=== PATIENT | male | born 1970 | race Caucasian/White ===

== ENCOUNTER 2017-05-02 13:56 | Emergency (ER) | payer OTHER ==
[~2017-05-02] VITALS: Ht 175.2 cm; Wt 90.7 kg
[~2017-05-02 13:56] MED LIST: BACTRIM DS 8001 TA1 PO; CLINDAMYCIN HC300 MG PO; FLEXERIL10 MG PO; KEFLEX500 MG PO; MOTRIN600 MG PO; NKHM PO; TRAMADOL HCL50 MG PO; TYLENOL ES500 MG PO; VICODIN 5/500 505 MG PO; ZITHROMAX Z PA250 MG PO
[2017-05-02] MEDS ORDERED: MEDROL DOSEPAK4 MG PO (16:13)
[2017-05-02] MEDS ORDERED: CYCLOBENZAPRINE5 M3 PO (16:13)
== END 2017-05-02 16:17 | disposition home or self-care (01) ==
LOC: ED 13:56
DX: M54.16 Radiculopathy, lumbar region (principal); F17.200 Nicotine dependence, unspecified, uncomplicated; Z88.0 Allergy status to penicillin; Z88.1 Allergy status to other antibiotic agents; Z79.899 Other long term (current) drug therapy

== ENCOUNTER → 2017-05-04 | Outpatient (CLI) | payer OTHER ==
[~2017-05-04] MED LIST changes: +CYCLOBENZAPRINE5 M3 PO; +MEDROL DOSEPAK4 MG PO
== END | disposition home or self-care (01) ==
LOC: RESCLI 13:07
DX: M54.17 Radiculopathy, lumbosacral region (principal); M54.30 Sciatica, unspecified side; F17.210 Nicotine dependence, cigarettes, uncomplicated; M79.604 Pain in right leg; Z88.0 Allergy status to penicillin

== ENCOUNTER → 2017-05-11 | Outpatient (CLI) | payer OTHER ==
[2017-05-11 15:54] LABS: BASO # 0.1 10*3/uL (0.0-0.1); BASO % 0.5 % (0.0-1.0); EOS # 0.4 10*3/uL (0.0-0.4); EOS % 3.2 % (1.0-4.0); HEMATOCRIT 44.7 % (42.0-52.0); HEMOGLOBIN 15.5 g/dl (14.0-18.0); LYMPH # 2.7 10*3/uL (1.3-4.4); MEAN CELL VOLUME 91.2 fl (80.0-94.0); MEAN CORPUSCULAR HGB 31.6 pg (27.0-31.0); MEAN CORPUSCULAR HGB CONC 34.7 g/dl (33.0-37.0); MEAN PLATELET VOLUME 9.4 fl (9.6-12.3); MONO # 0.9 10*3/uL (0.1-1.0); MONO % 7.8 % (3.0-9.0); NEUT # 7.6 10*3/uL (2.3-7.9); NEUT % 64.8 % (47.0-73.0); PLATELET COUNT AUTOMATED 328 10*3/uL (130-400); RED CELL DISTRI WIDTH 13.7 % (0-14.5); WHITE BLOOD COUNT 11.7 10*3/uL (4.8-10.8)
[2017-05-11 16:13] LABS: ALBUMIN 3.6 gm/dl (3.1-4.5); BUN 14 mg/dl (7-24); CHLORIDE 101 mmol/L (98-107); CREATININE 0.87 mg/dL (0.70-1.30); POTASSIUM 3.8 mmol/L (3.5-5.1); SGOT/AST 22 IU/L (3-35); SGPT/ALT 43 U/L (12-78); SODIUM 137 mmol/L (136-145)
[2017-05-11 16:14] LABS: ALKALINE PHOSPHATASE 56 U/L (45-117)
== END | disposition home or self-care (01) ==
LOC: LAB 03:31 → RESCLI 03:31
PROVIDERS: Hospitalist
DX: Z13.1 Encounter for screening for diabetes mellitus (principal); I10 Essential (primary) hypertension; R79.89 Other specified abnormal findings of blood chemistry

== ENCOUNTER 2017-06-06 23:28 | Emergency (ER) | payer OTHER ==
[~2017-06-06] VITALS: Ht 175.2 cm; Wt 102.1 kg
[2017-06-06] MEDS ORDERED: TRAMADOL HCL50 MG PO (23:32)
[2017-06-06] MEDS ORDERED: ASPIRIN ADULT L81 M1 PO (23:32)
[2017-06-06] MEDS ORDERED: LISINOPRIL10 M1 PO (23:32)
[2017-06-06] MEDS ORDERED: OLOPATADINE HCL5 ML OD (23:33)
[2017-06-06 23:56] LABS: BASO # 0.1 10*3/uL (0.0-0.1); BASO % 0.7 % (0.0-1.0); EOS # 0.3 10*3/uL (0.0-0.4); EOS % 2.5 % (1.0-4.0); HEMATOCRIT 45.3 % (42.0-52.0); HEMOGLOBIN 15.2 g/dl (14.0-18.0); LYMPH # 2.7 10*3/uL (1.3-4.4); MEAN CORPUSCULAR HGB 30.5 pg (27.0-31.0); MEAN CORPUSCULAR HGB CONC 33.6 g/dl (33.0-37.0); MEAN PLATELET VOLUME 9.2 fl (9.6-12.3); MONO % 9.1 % (3.0-9.0); NEUT # 6.6 10*3/uL (2.3-7.9); NEUT % 61.9 % (47.0-73.0); PLATELET COUNT AUTOMATED 348 10*3/uL (130-400); RED BLOOD COUNT 4.98 10*6/uL (4.50-5.90); RED CELL DISTRI WIDTH 13.3 % (0-14.5); WHITE BLOOD COUNT 10.6 10*3/uL (4.8-10.8)
[2017-06-07 00:10] LABS: ALBUMIN 3.6 gm/dl (3.1-4.5); ALKALINE PHOSPHATASE 64 U/L (45-117); BUN 14 mg/dl (7-24); CHLORIDE 107 mmol/L (98-107); CREATININE 1.03 mg/dL (0.70-1.30); LIPASE 162 U/L (73-393); POTASSIUM 4.1 mmol/L (3.5-5.1); SGOT/AST 17 IU/L (3-35); SGPT/ALT 39 U/L (12-78); SODIUM 141 mmol/L (136-145); TOTAL PROTEIN 6.9 gm/dL (6.4-8.2)
[2017-06-07 00:27] LABS: BILIRUBIN NEGATIVE (NEGATIVE); BLOOD 3+ (NEGATIVE); CLARITY SL CLOUDY (CLEAR); COLOR YELLOW (YELLOW); GLUCOSE NEGATIVE (NEGATIVE); KETONE NEGATIVE (NEGATIVE); LEUKO ESTERASE NEGATIVE (NEGATIVE); NITRITE NEGATIVE (NEGATIVE); SPECIFIC GRAVITY >= 1.030 (1.005-1.030); UROBILINOGEN 0.2 E.U./dl (0.2-1.0)
[2017-06-07 00:38] LABS: BACTERIA 1+; EPITHELIAL CELLS 0-2; RBC 51-100 rbc/hpf (0-2); WBC 0-2 wbc/hpf (0-5)
== END 2017-06-07 02:07 | disposition home or self-care (01) ==
LOC: ED 23:28
PROVIDERS: Nurse Practitioner Family
DX: N20.1 Calculus of ureter (principal); R10.11 Right upper quadrant pain; R10.31 Right lower quadrant pain; Z79.899 Other long term (current) drug therapy; Z79.82 Long term (current) use of aspirin; Z88.0 Allergy status to penicillin; Z88.1 Allergy status to other antibiotic agents

== ENCOUNTER → 2017-06-14 | Outpatient (CLI) | payer OTHER ==
[~2017-06-14] MED LIST changes: +ASPIRIN ADULT L81 M1 PO; +LISINOPRIL10 M1 PO; +OLOPATADINE HCL5 ML OD
[2017-06-14 16:57] LABS: BASO # 0.1 10*3/uL (0.0-0.1); BASO % 0.7 % (0.0-1.0); EOS # 0.3 10*3/uL (0.0-0.4); EOS % 3.5 % (1.0-4.0); HEMATOCRIT 45.1 % (42.0-52.0); LYMPH # 2.5 10*3/uL (1.3-4.4); LYMPH % 33.7 % (27.0-41.0); MEAN CELL VOLUME 92.4 fl (80.0-94.0); MEAN CORPUSCULAR HGB 30.7 pg (27.0-31.0); MEAN CORPUSCULAR HGB CONC 33.3 g/dl (33.0-37.0); MEAN PLATELET VOLUME 9.3 fl (9.6-12.3); MONO # 0.8 10*3/uL (0.1-1.0); MONO % 10.2 % (3.0-9.0); NEUT # 3.9 10*3/uL (2.3-7.9); NEUT % 51.5 % (47.0-73.0); PLATELET COUNT AUTOMATED 327 10*3/uL (130-400); RED BLOOD COUNT 4.88 10*6/uL (4.50-5.90); RED CELL DISTRI WIDTH 13.4 % (0-14.5); WHITE BLOOD COUNT 7.5 10*3/uL (4.8-10.8)
[2017-06-14 16:57] LABS: BILIRUBIN NEGATIVE (NEGATIVE); BLOOD 1+ (NEGATIVE); CLARITY CLEAR (CLEAR); COLOR YELLOW (YELLOW); GLUCOSE NEGATIVE (NEGATIVE); KETONE NEGATIVE (NEGATIVE); LEUKO ESTERASE NEGATIVE (NEGATIVE); NITRITE NEGATIVE (NEGATIVE); PH 5.5 (5.0-9.0); SPECIFIC GRAVITY <= 1.005 (1.005-1.030); UROBILINOGEN 0.2 E.U./dl (0.2-1.0)
[2017-06-14 17:15] LABS: ALKALINE PHOSPHATASE 56 U/L (45-117); BUN 13 mg/dl (7-24); CHLORIDE 103 mmol/L (98-107); CREATININE 0.91 mg/dL (0.70-1.30); SGOT/AST 24 IU/L (3-35); SGPT/ALT 44 U/L (12-78); SODIUM 139 mmol/L (136-145); T3 UPTAKE 38 % (31-39); THYROXINE (T4) TOTAL 6.8 ug/dl (4.5-12.1); TOTAL PROTEIN 7.2 gm/dL (6.4-8.2)
[2017-06-14 17:37] LABS: RBC 0-2 rbc/hpf (0-2); WBC 0-2 wbc/hpf (0-5)
== END | disposition home or self-care (01) ==
LOC: LAB 15:46 → US 17:00
PROVIDERS: Urology
DX: N20.0 Calculus of kidney (principal)

== ENCOUNTER → 2017-06-18 | Outpatient (CLI) | payer OTHER | END | disposition home or self-care (01) | LOC: LAB 08:05 | PROVIDERS: Urology | DX: N20.0 Calculus of kidney (principal) ==

== ENCOUNTER → 2017-09-02 | Outpatient (CLI) | payer SELFPAY | END | disposition home or self-care (01) | LOC: RESCLI 07:54 | DX: I10 Essential (primary) hypertension (principal); E55.9 Vitamin D deficiency, unspecified; L72.9 Follicular cyst of the skin and subcutaneous tissue, unspecified; F17.210 Nicotine dependence, cigarettes, uncomplicated; Z71.6 Tobacco abuse counseling; Z83.3 Family history of diabetes mellitus; Z84.89 Family history of other specified conditions; Z88.0 Allergy status to penicillin; Z88.8 Allergy status to other drugs, medicaments and biological substances ==

== ENCOUNTER 2018-12-09 17:35 | Emergency (ER) | payer OTHER ==
[~2018-12-09] VITALS: Ht 175.2 cm; Wt 99.8 kg
[2018-12-09] MEDS ORDERED: PREDNISONE20 M1 PO (17:55)
[2018-12-09] MEDS ORDERED: SEPTDS PO (17:55)
== END 2018-12-09 18:09 | disposition home or self-care (01) ==
LOC: ED 17:35
DX: L02.13 Carbuncle of neck (principal); Z79.899 Other long term (current) drug therapy; Z79.82 Long term (current) use of aspirin; Z88.0 Allergy status to penicillin; Z88.1 Allergy status to other antibiotic agents

== ENCOUNTER 2019-05-19 00:33 | Emergency (ER) | payer OTHER ==
[~2019-05-19] VITALS: Ht 175.2 cm; Wt 102.1 kg
[~2019-05-19 00:33] MED LIST changes: +PREDNISONE20 M1 PO; +SEPTDS PO
[2019-05-19] MEDS ORDERED: ANAPROX DS550 MG PO (01:03)
== END 2019-05-19 02:33 | disposition home or self-care (01) ==
LOC: ED 00:33
DX: M94.0 Chondrocostal junction syndrome [Tietze] (principal); Z88.0 Allergy status to penicillin; Z88.8 Allergy status to other drugs, medicaments and biological substances; Z79.899 Other long term (current) drug therapy; Z79.2 Long term (current) use of antibiotics; Z79.82 Long term (current) use of aspirin

== ENCOUNTER 2020-07-02 09:34 | Emergency (ER) | payer OTHER ==
[~2020-07-02] VITALS: Ht 175.2 cm; Wt 102.1 kg
[~2020-07-02 09:34] MED LIST changes: +ANAPROX DS550 MG PO
[2020-07-02 10:30] LABS: BILIRUBIN Negative (Negative); BLOOD Negative (Negative); CLARITY Clear (Clear); COLOR Yellow (Yellow); GLUCOSE Negative (Negative); KETONE Negative (Negative); LEUKO ESTERASE Negative (Negative); NITRITE Negative (Negative)
[2020-07-02 10:50] LABS: BACTERIA TRACE; EPITHELIAL CELLS 0-2; MUCOUS TRACE; RBC 0-2 rbc/hpf (0-2); WBC 0-2 wbc/hpf (0-5)
[2020-07-02 10:55] LABS: BASO # 0.1 10*3/uL (0.0-0.1); BASO % 0.9 % (0.0-1.0); EOS # 0.3 10*3/uL (0.0-0.4); EOS % 4.3 % (1.0-4.0); HEMATOCRIT 47.4 % (42.0-52.0); LYMPH # 1.8 10*3/uL (1.3-4.4); LYMPH % 27.6 % (27.0-41.0); MEAN CELL VOLUME 90.6 fl (80.0-94.0); MEAN CORPUSCULAR HGB 30.4 pg (27.0-31.0); MEAN CORPUSCULAR HGB CONC 33.5 g/dl (33.0-37.0); MEAN PLATELET VOLUME 9.2 fl (9.6-12.3); MONO # 0.6 10*3/uL (0.1-1.0); MONO % 9.6 % (3.0-9.0); NEUT # 3.8 10*3/uL (2.3-7.9); NEUT % 57.3 % (47.0-73.0); PLATELET COUNT AUTOMATED 315 10*3/uL (130-400); RED BLOOD COUNT 5.23 10*6/uL (4.50-5.90); RED CELL DISTRI WIDTH 13.3 % (0-14.5); WHITE BLOOD COUNT 6.6 10*3/uL (4.8-10.8)
[2020-07-02 11:06] LABS: ACT PARTIAL THROMBO TIME 27.8 SECONDS (20.0-32.1)
[2020-07-02 11:13] LABS: ALBUMIN 3.6 gm/dl (3.1-4.5); ALKALINE PHOSPHATASE 65 U/L (45-117); BUN 11 mg/dl (7-24); CHLORIDE 111 mmol/L (98-107); CREATININE 0.92 mg/dL (0.70-1.30); LIPASE 82 U/L (73-393); POTASSIUM 4.1 mmol/L (3.5-5.1); SGOT/AST 17 IU/L (3-35); SGPT/ALT 41 U/L (12-78); SODIUM 139 mmol/L (136-145); TOTAL PROTEIN 7.3 gm/dL (6.4-8.2)
[2020-07-02 11:15] LABS: NT-proBNP < 5.00 pg/mL (0-125); TROPONIN I < 0.015 ng/ml (<0.045)
== END 2020-07-02 11:20 | disposition home or self-care (01) ==
LOC: ED 09:34
PROVIDERS: Emergency Medicine
DX: R53.1 Weakness (principal); Z20.822 Contact with and (suspected) exposure to COVID-19; Z88.0 Allergy status to penicillin; Z88.8 Allergy status to other drugs, medicaments and biological substances; Z79.899 Other long term (current) drug therapy

== ENCOUNTER 2020-10-19 19:09 | Emergency (ER) | payer OTHER ==
[~2020-10-19] VITALS: Ht 175.2 cm; Wt 106.6 kg
[2020-10-20] MEDS ORDERED: NAPROXEN250 MG PO (13:06)
[2020-10-20] MEDS ORDERED: TYLENOL325 M1 PO (13:06)
== END 2020-10-19 20:40 | disposition left against medical advice (07) ==
LOC: ED 19:09
DX: M25.571 Pain in right ankle and joints of right foot (principal); R51.9 Headache, unspecified; Z53.21 Procedure and treatment not carried out due to patient leaving prior to being seen by health care provider; W17.2XXA Fall into hole, initial encounter; Y93.89 Activity, other specified; Y92.89 Other specified places as the place of occurrence of the external cause; Y99.8 Other external cause status

== ENCOUNTER 2020-10-20 10:06 | Emergency (ER) | payer OTHER ==
[~2020-10-20] VITALS: Ht 175.2 cm; Wt 106.6 kg
[2020-10-20] MEDS ORDERED: NAPROXEN250 MG PO (13:06)
[2020-10-20] MEDS ORDERED: TYLENOL325 M1 PO (13:06)
== END 2020-10-20 13:02 | disposition home or self-care (01) ==
LOC: ED 10:06
DX: S93.401A Sprain of unspecified ligament of right ankle, initial encounter (principal); M25.551 Pain in right hip; Z88.0 Allergy status to penicillin; Z88.1 Allergy status to other antibiotic agents; Z79.899 Other long term (current) drug therapy; Z79.2 Long term (current) use of antibiotics; Z79.82 Long term (current) use of aspirin; Z87.442 Personal history of urinary calculi; W01.198A Fall on same level from slipping, tripping and stumbling with subsequent striking against other object, initial encounter; Y93.01 Activity, walking, marching and hiking; Y92.69 Other specified industrial and construction area as the place of occurrence of the external cause; Y99.8 Other external cause status

== ENCOUNTER 2021-04-27 18:46 | Emergency (ER) | payer SELFPAY ==
[~2021-04-27] VITALS: Ht 175.2 cm; Wt 106.6 kg
[~2021-04-27 18:46] MED LIST changes: +NAPROXEN250 MG PO; +TYLENOL325 M1 PO
[2021-04-27] MEDS ORDERED: CEPHALEXIN500 M1 PO (19:58)
== END 2021-04-27 20:00 | disposition home or self-care (01) ==
LOC: ED 18:46
DX: S91.331A Puncture wound without foreign body, right foot, initial encounter (principal); Z79.899 Other long term (current) drug therapy; Z79.82 Long term (current) use of aspirin; Z88.0 Allergy status to penicillin; Z88.1 Allergy status to other antibiotic agents; W45.8XXA Other foreign body or object entering through skin, initial encounter; Y93.89 Activity, other specified; Y92.89 Other specified places as the place of occurrence of the external cause; Y99.8 Other external cause status